=== PATIENT | male | born 1940 | race Caucasian/White ===

== ENCOUNTER 2020-08-13 12:04 | Emergency (ER) | payer OTHER ==
[~2020-08-13] VITALS: Ht 180.3 cm; Wt 87.5 kg
[~2020-08-13 12:04] MED LIST: ADVICOR; ALBU90OI6 INH; ASPI81CH PO; ATOR10; ATOR40TA; ATOR40TA PO; CHOL10002; CLOP75; CLOP75 PO; CYCL10 PO; DOCU100 PO; Daily Multivit1 EAC2 PO; Ferosul325 MG PO; GLIP5 PO; HYDACE10B PO; HYDACE5 PO; IBUP800; Isosorbide Mono30 MG PO; LISI20 PO; MAGOXI400 PO; METF500C PO; METO50 PO; NITR.4SL; OXYACE7.5T PO; OXYC5 PO; Omeprazole20 M1; RANO500T PO; RXOXYACE PO; SENN187 PO; SULTRIDS PO; TUMS300 MG PO; [UNRECOGNIZED DRUG - REMARK]; cholesterol med
[2020-08-13 13:20] LABS: BASOPHILS ABSOLUTE AUTO 0.05 K/mm3 (0.00-0.23); BASOPHILS PERCENT AUTO 1 % (0-2); EOSINOPHILS ABSOLUTE AUTO 0.24 K/mm3 (0.00-0.68); EOSINOPHILS PERCENT AUTO 2 % (0-6); Hematocrit 43.4 % (37.0-53.0); Hemoglobin 14.3 g/dL (13.5-17.5); IMMATURE GRAN ABSOLUTE AUTO 0.12 K/mm3 (0.00-0.10); IMMATURE GRAN PERCENT AUTO 1 % (0-1); LYMPHOCYTES ABSOLUTE AUTO 1.39 K/mm3 (0.84-5.20); LYMPHOCYTES PERCENT AUTO 13 % (21-46); MONOCYTES ABSOLUTE AUTO 0.73 K/mm3 (0.16-1.47); MONOCYTES PERCENT AUTO 7 % (4-13); Mean Corpuscular HGB 31.8 pg (26.0-34.0); Mean Corpuscular HGB Conc 32.9 g/dL (31.5-36.5); Mean Corpuscular Volume 97 fL (80-100); Mean Platelet Volume 11.2 fL (9.1-12.4); NEUTROPHILS ABSOLUTE AUTO 8.05 K/mm3 (1.96-9.15); NEUTROPHILS PERCENT AUTO 76 % (41-73); Platelet Count 198 K/mm3 (150-400); RDW Coefficient Variation 12.4 % (11.7-14.2); RDW Standard Deviation 43.9 fL (35.1-46.3); Red Blood Cell Count 4.49 M/mm3 (4.30-5.90); White Blood Cell Count 10.58 K/mm3 (4.00-11.30)
[2020-08-13 13:22] LABS: Alanine Aminotransfer (ALT/SGP 30 U/L (12-78); Albumin, Blood 3.7 g/dL (3.4-5.0); Alk Phos 77 U/L (50-136); Anion Gap 7 mmol/L (6-16); Aspartate Aminotrans (AST/SGOT 21 U/L (12-37); Bilirubin, Total 0.6 mg/dL (0.1-1.0); Blood Urea Nitrogen 31 mg/dL (8-24); Bun/Creatinine Ratio 23.7 (12.0-20.0); CO2, Blood 28 mmol/L (21-32); Calcium, Blood 9.6 mg/dL (8.5-10.1); Chloride, Blood 104 mmol/L (98-108); Creatinine, Blood 1.31 mg/dL (0.60-1.20); Globulin, Blood 3.7 g/dL (2.2-4.0); Glomerular Filtration Rate 56 (60-); Glucose, Blood 101 mg/dL (70-99); Potassium, Blood 4.6 mmol/L (3.5-5.5); Sodium, Blood 139 mmol/L (136-145); Total Protein, Blood 7.4 g/dL (6.4-8.2); Troponin I <0.015 ng/mL (0.000-0.040)
== END 2020-08-13 15:08 | disposition home or self-care (01) ==
LOC: ER 12:04
PROVIDERS: Emergency Medicine
DX: R07.9 Chest pain, unspecified (principal); Z87.891 Personal history of nicotine dependence
CPT/HCPCS: 71045; 80053; 83690; 84484; 85025; 93005; 93010; 99285-25

== ENCOUNTER 2021-08-05 17:28 | Inpatient (IN) | payer OTHER ==
[~2021-08-05] VITALS: Ht 180.3 cm; Wt 81.8 kg
[2021-08-05 18:00] LABS: BASOPHILS ABSOLUTE AUTO 0.07 K/mm3 (0.00-0.23); BASOPHILS PERCENT AUTO 0 % (0-2); EOSINOPHILS ABSOLUTE AUTO 0.04 K/mm3 (0.00-0.68); EOSINOPHILS PERCENT AUTO 0 % (0-6); Hematocrit 43.2 % (37.0-53.0); Hemoglobin 14.3 g/dL (13.5-17.5); IMMATURE GRAN ABSOLUTE AUTO 0.22 K/mm3 (0.00-0.10); IMMATURE GRAN PERCENT AUTO 1 % (0-1); LYMPHOCYTES ABSOLUTE AUTO 1.04 K/mm3 (0.84-5.20); LYMPHOCYTES PERCENT AUTO 5 % (21-46); MONOCYTES ABSOLUTE AUTO 1.45 K/mm3 (0.16-1.47); MONOCYTES PERCENT AUTO 7 % (4-13); Mean Corpuscular HGB 33.3 pg (26.0-34.0); Mean Corpuscular HGB Conc 33.1 g/dL (31.5-36.5); Mean Corpuscular Volume 101 fL (80-100); Mean Platelet Volume 10.9 fL (9.1-12.4); NEUTROPHILS ABSOLUTE AUTO 17.82 K/mm3 (1.96-9.15); NEUTROPHILS PERCENT AUTO 86 % (41-73); Platelet Count 267 K/mm3 (150-400); RDW Coefficient Variation 13.3 % (11.7-14.2); Red Blood Cell Count 4.29 M/mm3 (4.30-5.90); White Blood Cell Count 20.64 K/mm3 (4.00-11.30)
[2021-08-05 19:12] LABS: Albumin, Blood 3.5 g/dL (3.4-5.0); Albumin/Globulin Ratio 1.1 (0.8-1.8); Bilirubin, Total 1.2 mg/dL (0.1-1.0); Calcium, Blood 9.5 mg/dL (8.5-10.1); Creatinine, Blood 1.45 mg/dL (0.60-1.20); Globulin, Blood 3.3 g/dL (2.2-4.0); Magnesium, Blood 1.9 mg/dL (1.6-2.4); Potassium, Blood 5.2 mmol/L (3.5-5.5); Total Protein, Blood 6.8 g/dL (6.4-8.2)
[2021-08-05 19:39] LABS: Base Excess Venous -7.9 mmol/L; Bicarbonate Venous 18.2 mmol/L (24.0-30.0); PCO2 Venous 45.1 mmHg (38-42); PO2 Venous 89.9 mmHg (38-42); pH Blood Venous 7.24 (7.34-7.37)
[2021-08-05 21:48] LABS: Base Excess Venous -6.6 mmol/L; Bicarbonate Venous 18.4 mmol/L (24.0-30.0); PCO2 Venous 47.6 mmHg (38-42); PO2 Venous 37.4 mmHg (38-42); pH Blood Venous 7.25 (7.34-7.37)
[2021-08-06 01:29] LABS: Influenza A, PCR NEGATIVE (NEGATIVE); Influenza B, PCR NEGATIVE (NEGATIVE); Resp Syncytial Virus, PCR NEGATIVE (NEGATIVE); SARS-Cov-2 (COVID-19) PCR, MMC NEGATIVE (NEGATIVE)
[2021-08-06 03:01] LABS: Base Excess Venous -6.7 mmol/L; Bicarbonate Venous 18.5 mmol/L (24.0-30.0); PCO2 Venous 41.6 mmHg (38-42); PO2 Venous 35.4 mmHg (38-42); pH Blood Venous 7.29 (7.34-7.37)
[2021-08-06 03:04] LABS: BASOPHILS ABSOLUTE AUTO 0.05 K/mm3 (0.00-0.23); BASOPHILS PERCENT AUTO 0 % (0-2); EOSINOPHILS PERCENT AUTO 0 % (0-6); Hematocrit 43.7 % (37.0-53.0); Hemoglobin 14.1 g/dL (13.5-17.5); IMMATURE GRAN ABSOLUTE AUTO 0.25 K/mm3 (0.00-0.10); IMMATURE GRAN PERCENT AUTO 1 % (0-1); LYMPHOCYTES ABSOLUTE AUTO 0.63 K/mm3 (0.84-5.20); LYMPHOCYTES PERCENT AUTO 2 % (21-46); MONOCYTES ABSOLUTE AUTO 2.13 K/mm3 (0.16-1.47); MONOCYTES PERCENT AUTO 7 % (4-13); Mean Corpuscular HGB 32.7 pg (26.0-34.0); Mean Corpuscular HGB Conc 32.3 g/dL (31.5-36.5); Mean Corpuscular Volume 101 fL (80-100); Mean Platelet Volume 10.5 fL (9.1-12.4); NEUTROPHILS ABSOLUTE AUTO 26.29 K/mm3 (1.96-9.15); NEUTROPHILS PERCENT AUTO 90 % (41-73); Platelet Count 236 K/mm3 (150-400); RDW Coefficient Variation 13.2 % (11.7-14.2); RDW Standard Deviation 49.7 fL (35.1-46.3); Red Blood Cell Count 4.31 M/mm3 (4.30-5.90); White Blood Cell Count 29.35 K/mm3 (4.00-11.30)
[2021-08-06 03:29] LABS: Bun/Creatinine Ratio 21.8 (12.0-20.0); Calcium, Blood 8.8 mg/dL (8.5-10.1); Creatinine, Blood 1.42 mg/dL (0.60-1.20); Potassium, Blood 5.8 mmol/L (3.5-5.5)
[2021-08-06] MEDS ORDERED: AMLO5 PO (03:48)
[2021-08-06] MEDS ORDERED: STIOLTO RESPIMAT4 G1 INH (03:56)
[2021-08-06] MEDS ORDERED: RANEXA1000 M1 PO (04:03)
[2021-08-06] MEDS ORDERED: CHLO25B PO (04:08)
[2021-08-06] MEDS ORDERED: THERA-D2000 UNIT PO (04:10)
--- NOTE | 2021-08-06 07:15 | NUR ---
OUT OF UNIT TO OPERATING ROOM: FRANCOIS Martínez RN, HAS COME TO PT's BEDSIDE & WILL BE ESCORTING THIS PT TO THE OR THIS AM. PT TRANSFERRED TO [facility] & TAKEN OUT OF ROOM AT APPROX 0715. THIS RN HAS NOT BEEN ABLE TO ASSESS PT PRIOR TO LEAVING UNIT, PLAN IS FOR PT TO RETURN TO ICU AFTER SURGERY. 0800 ZOSYN DOSE SENT W/ ASUNCION PARRISH, TO BE GIVEN DURING PROCEDURE.
--- NOTE | 2021-08-06 07:44 | NUR ---
SHIFT SUMMARY PATIENT SLEPT THROUGH MOST OF SHIFT. HAD 2 BM OF SOFT STOOL. NO DIARRHEA. NO NAUSEA OR VOMITING. PAIN 6/10 IN LOW ABD AT MAX-FENTANY[facility] 25MCG IV X1 GIVEN WITH IMPROVEMENT TO 2/10. DESATTED WHEN SLEEPING FROM SPO2 MID TO HIGH 90'S DOWN TO 70'S. 3LPM NC PLACED ON PATIENT AND NO FURTHER EVENTS OF DECREASED SPO2 OCCURED. PATIENT NPO T/O NIGHT IN PREP FOR SURGERY THIS AM. LACTIC STILL CRITICAL @ 7.0 BUT IMPROVED FROM 7.6. LR INF @ 100ML/HR AND NS TKO. NO OTHER CHANGES DURING SHIFT. REPORT COMPLETED WITH ASUNCION GAINES.
--- NOTE | 2021-08-06 08:08 | NUR ---
08/06/21 0808 Rosa Monreal DURING TIME OUT DR TOMAS EXPRESSED CONCERNS FOR THIS SURGERY RELATED TO PT BEING SEPTIC, CARDIAC HISTORY AND PT IS ON PLAVIX.
--- NOTE | 2021-08-06 09:30 | NUR ---
DR TOMAS: PT IS NOW IN PACU & DR TOMAS HAS COME TO THE UNIT TO GIVE THIS RN AN UPDATE REGARDING THE SURGERY. THE PT IS NOW S/P LAPROSCOPIC APPENDECTOMY THAT WENT WELL W/ NO COMPLICATIONS. HE FEELS THAT THE PT IS TRENDING IN THE RIGHT DIRECTIONS & IF HE REMAINS APPROPRIATE, WILL BE A GOOD CANDIDATE FOR A TRANSFER TO SURGICAL FLOOR THIS AFTERNOON. DR TOMAS HAS ALSO CALLED & UPDATED THE PT's SISTER, MEL. NO OTHER CHANGES AT THIS TIME, WILL AWAIT PT RETURN TO ICU-11 FROM PACU.
[2021-08-06 09:54] LABS: C DIFFICILE DNA NEGATIVE (Negative)
--- NOTE | 2021-08-06 10:15 | NUR ---
RETURN TO ICU: PT ARRIVES TO ICU-11 FROM PACU AT APPROX 1000. ON ARRIVAL, THE PT IS DROWSY BUT AWAKE. ORIENTED TO ALL & FOLLOWING DIRECTIONS. HE DENIES PAIN AT THIS TIME. LS DIM T/O, PT ON 3L NC W/ O2 SATS > 95%. MONITOR SHOWS SR W/ HR 80s, BP STABLE. WHEN PT MORE AWAKE, CLEAR LIQUIDS DIET ORDERED PER DR TOMAS. PATENT/ DRAINING YELLOW URINE. SKIN CONDITION OVERALL FRAGILE W/ NUMEROUS AREAS OF ECCHYMOSIS & SKIN TEARS R/T GLF AT HOME. 3 LAP SITES NOW NOTED ON ABDOMEN, 2 W/ STERI STRIPS CDI & 1 TO UMBILICUS W/ GAUZE & TEGADERM CDI. WILL CONTINUE TO MONITOR & UPDATE NEEDED.
--- NOTE | 2021-08-06 10:20 | NUR ---
DR AVELAR: PROVIDER AT BEDSIDE TO EVAL PT. IVF RATE INCREASED PER ORDERS R/T LACTIC ACID REMAINING CRITICAL HIGH, ALTHOUGH IMPROVED.
[2021-08-06 10:46] LABS: Source, Urine Foley catheter
[2021-08-06 12:29] LABS: Bilirubin, Urine Neg (Neg); Blood, Urine 1+ (Neg); Color, Urine Amber (P-Yellow); Glucose Qualitative, Urine Neg (Neg); Ketones, Urine 2+ (Neg); Leukocyte Esterase, Urine 1+ (Neg); Nitrite, Urine Pos (Neg); Protein, Urine 2+ (Neg); Specific Gravity, Urine 1.015 (1.003-1.022); Urobilinogen, Urine NORM (Normal)
[2021-08-06 13:33] LABS: Appearance, Urine Hazy (Clear)
[2021-08-06 13:34] LABS: Amorphous Mod (0-Heavy); Bacteria Mod /hpf; Hyaline Casts 0-2 /lpf (0-2); Mucus Light (0-Heavy); Squamous Epithelial Cells Few /hpf (Few)
--- NOTE | 2021-08-06 15:15 | NUR ---
TRANSFER TO SURGICAL FLOOR: REPORT HAS BEEN GIVEN TO JONE Greene RN TO ASSUME CARE. THE PT CONTINUES TO DENY PAIN OR NAUSEA POSTOPERATIVELY & HAS TOLERATED PO INTAKE OF CLEAR LIQUIDS WELL. LAP SITES x3 TO ABD WNL, NO NEW DRAINAGE NOTED. ALL PT BELONGINGS HAVE BEEN GATHERED BY FREIGHT LOADER, CARLOS Gamble. THE PT, CHART, BELONGINGS & MEDICATIONS HAVE BEEN TAKEN TO ROOM 227 VIA BED AT APPROX 1510.
--- NOTE | 2021-08-06 15:52 | NUR ---
PT ARRIVED FROM ICU TO RM 227 AT APPROXIMATELY 1530. PT IS ALERT AND ORIENTED, DENIES NEED FOR PAIN MEDICATION. PLAN FOR TO REMAIN IN PLACE TO MONITOR URINARY OUTPUT. PT/OT TO BE ORDERED. TELE IN PLACE, PT IN NSR. WILL CONTINUE TO MONITOR.
--- NOTE | 2021-08-06 19:15 | NUR ---
SHIFT SUMMARY PT IS TOLERATING CLEAR LIQUIDS. PT DENIES PAIN. NO CHANGES TO REPORT SINCE PT ARRIVED TO THE ROOM.
--- NOTE | 2021-08-07 04:17 | NUR ---
SHIFT SUMMARY NO ACUTE CHANGES. LAP SITES TO ABD REMAIN CDI. PT CONTINUES TO DENY THE NEED FOR PAIN MEDICATIONS. IVF + ABX PER ORDERS. PT DENIES FLATUS. PATENT AND DRAINING DARK CODY COLORED URINE. PLAN FOR PT/OT EVALS TODAY. CALL LIGHT WITHIN REACH.
[2021-08-07 04:47] LABS: Hematocrit 35.2 % (37.0-53.0); Hemoglobin 11.7 g/dL (13.5-17.5); Mean Corpuscular HGB 32.9 pg (26.0-34.0); Mean Corpuscular HGB Conc 33.2 g/dL (31.5-36.5); Mean Corpuscular Volume 99 fL (80-100); Mean Platelet Volume 10.7 fL (9.1-12.4); Platelet Count 180 K/mm3 (150-400); RDW Coefficient Variation 13.4 % (11.7-14.2); RDW Standard Deviation 48.3 fL (35.1-46.3); Red Blood Cell Count 3.56 M/mm3 (4.30-5.90); White Blood Cell Count 15.42 K/mm3 (4.00-11.30)
[2021-08-07 05:10] LABS: Bun/Creatinine Ratio 18.6 (12.0-20.0); Calcium, Blood 8.3 mg/dL (8.5-10.1); Creatinine, Blood 0.97 mg/dL (0.60-1.20); Magnesium, Blood 1.4 mg/dL (1.6-2.4); Potassium, Blood 3.6 mmol/L (3.5-5.5)
--- NOTE | 2021-08-07 14:04 | NUR ---
WHEN DOING ASSESSMENT TODAY AT ABOUT 0930, REGISTERED DIETICIAN CAMMIE CALLED BY THIS RN. TECH REPORTS THAT PT IS IN AFIB,RATE OF 89. PT HAS BEEN IN THIS RHYTHM SINCE 0300 THIS MORNING PER REGISTERED DIETICIAN, SEE STRIPS. WITH ASSESSMENT, NO CHANGE IN VITAL SIGNS, PT DENIES CP AND REPORTS THAT AFIB IS COMMON FOR HIM. DR. AVELAR NOTIFIED OF CHANGE IN RHYTHM. WILL CTM
--- NOTE | 2021-08-07 14:47 | NUR ---
DRESSING AT L WRIST REMOVED AND SKIN TEAR CLEANSED. DRESSED WITH NON-ADHERENT DRESSING AND CATHERINE WRAP
--- NOTE | 2021-08-07 16:55 | NUR ---
SUMMARY: NO ACUTE CHANGE TODAY. VSS, A/O. SURGICAL SITES WNL. PT TOLERATING CLEAR/FULL LIQUID, ADVANCED TO ADA DIET FOR DINNER. PT HAS DENIED NAUSEA, CONTINUES TO HAVE SOME LOOSE STOOLS. PT IS SBA DUE TO LINES/CORDS BUT MOVES WELL, SEE PT/OT NOTES. OG VILLALBA'D, AWAITING PT VOID, WILL ENCOURAGE AND MONITOR. 1 NARCO SEEMS TO BE MANAGING PAIN WELL. EDUCATED ON SPLITING ABD WITH COUGH. PER DR. TOMAS NO NEED FOR REPEAT LACTIC, WBC'S ARE TRENDING DOWN. NO SAFETY CONCERNS, WILL REPORT TO NOC RN.
--- NOTE | 2021-08-08 05:19 | NUR ---
PT IS A&OX4, 1PA TO [facility] AND IS ABLE TO MAKE NEEDS KNOWN. RECENT LAP APPY, POST OP DAY 2. RECEIVING IV ABX. ON TELE, HAS A FLUTTER WITH HR OF 80-100 THIS SHIFT. PT ABLE TO REST BETWEEN CARES, SLEEPS 6+ HOURS THIS SHIFT. REQUIRES ENCOURAGMENT TO USE CALL LIGHT. STRAIGHT CATHED FOR 700ML, PT WAS RETAINING URINE. WILL CONTINUE TO MONITOR PT AND GIVE HANDOFF REPORT TO ONCOMING NURSE.
--- NOTE | 2021-08-08 18:36 | NUR ---
PT AMBULATING IN ROOM AND GARCIA WITH WALKER, STEADY GAIT. WITH CLEAR YELLOW OUTPUT. ORDERS FOR STOOL SPECIMEN, SINCE ORDER PT HAD1 APPROX 10 ML STOOL OF CLEAR MUCOUS ONLY. DANIELA DIET WITHOUT NAUSEA. STERI STRIPS DRY AND INTACT TO ABD
[2021-08-09 04:53] LABS: Hematocrit 33.2 % (37.0-53.0); Hemoglobin 11.1 g/dL (13.5-17.5); Mean Corpuscular HGB 32.9 pg (26.0-34.0); Mean Corpuscular HGB Conc 33.4 g/dL (31.5-36.5); Mean Corpuscular Volume 99 fL (80-100); Mean Platelet Volume 10.4 fL (9.1-12.4); Platelet Count 208 K/mm3 (150-400); Red Blood Cell Count 3.37 M/mm3 (4.30-5.90); White Blood Cell Count 13.02 K/mm3 (4.00-11.30)
[2021-08-09 05:12] LABS: Bun/Creatinine Ratio 9.7 (12.0-20.0); Calcium, Blood 8.5 mg/dL (8.5-10.1); Creatinine, Blood 0.82 mg/dL (0.60-1.20); Potassium, Blood 3.4 mmol/L (3.5-5.5)
--- NOTE | 2021-08-09 05:34 | NUR ---
NO ACUTE CHANGES THIS SHIFT. PT A&OX4, 1PA TO [facility] [place] [place] AND IS ABLE TO MAKE NEEDS KNOWN. LAP SITES ARE CDI, NO REPORTS OF PAIN THIS SHIFT. STOOLS REMAIN SOFT AND MUCOUS FILLED, UNABLE TO OBTAIN A STOOL SAMPLE. PT TOLERATING DIET. BLOOD SUGARS <170. PT ABLE TO AMBULATE THE HALLWAY YESTERDAY. RESTS BETWEEN CARES, SLEEPS 6+ HOURS THIS SHIFT. WILL CONTINUE TO MONITOR AND GIVE REPORT TO ONCOMING NURSE.
--- NOTE | 2021-08-09 18:24 | NUR ---
PT UNABLE TO VOID AFTER REMOVED. ORDERS OBTAINED TO REPLACE IF BLADDER SCAN GREATER THAN 400. PT STATES HAS HAD NO DIFFICULTY VOIDING PRIOR TO ADMIT PT IN SHOWER AT THIS TIME STATES IT MAY HELP HIM TO RELAX AND BE ABLE TO VOID. DANIELA PO FOOD AND FLUIDS WITHOUT NAUSEA. AMBULATING IN ROOM STEADY ON FEET
--- NOTE | 2021-08-10 03:44 | NUR ---
SHIFT SUMMARY NO ACUTE CHANGES OVERNIGHT, PT HAS RESTED OFF AND ON T/O THE SHIFT. HE DENIES PAIN. ABD INCISION C/D/I, STERI STRIPS TO ABD INTACT. ABD SOFT, APPETITE GOOD. PT HAS VOIDED TWICE THIS SHIFT WITHOUT DIFFCULTY SINCE REMOVAL. PT HAS BEEN INDEPENDENT IN THE ROOM. PLAN IS FOR POSSIBLE DC TODAY. BED IN LOWEST POSITION, CALL LIGHT WITHIN REACH.
--- NOTE | 2021-08-10 08:36 | NUR ---
DENIES ANY PAIN, EATING REGULAR BREAKFAST, REPORTS TOLERATING REGULAR DIET WELL AND PASSING FLATUS, DENIES ANY URINARY RETENTION, STATES VOIDING WITHOUT DIFFICULTY, CONT. TO MONITOR FOR ANY CHANGES.
[2021-08-10] MEDS ORDERED: AMOCLA875 PO (10:27)
[2021-08-10] MEDS ORDERED: ELIQUIS5 M2 PO (10:28)
[2021-08-10] MEDS ORDERED: VISBIOME 112.51 EACH PO (10:28)
[2021-08-10] MEDS ORDERED: TAMS.4ER PO (10:28)
[2021-08-10] MEDS ORDERED: DOCUZEN 8.6-501 EACH PO (10:30)
[2021-08-10] MEDS ORDERED: MIRALAX17 GM PO (10:31)
--- NOTE | 2021-08-10 12:01 | NUR ---
DC'D HOME, DC INSTRUCTIONS GIVEN, VERBALIZED UNDERSTANDING.
== END 2021-08-10 11:30 | disposition home or self-care (01) | DRG 853 ==
LOC: ER 17:28 → ICUW 08-06 → SURS 08-06 → ICUW 08-06 00:30 → SURS 08-06 15:15
PROVIDERS: Internal Medicine; Student in an Organized Health Care Education/Training Program; Surgery; ADMIT Family Medicine
PROC: 0DTJ4ZZ Resection of Appendix, Percutaneous Endoscopic Approach (ICD-10-PCS; 2021-08-06)
PROC: 3E03329 Introduction of Other Anti-infective into Peripheral Vein, Percutaneous Approach (ICD-10-PCS; principal; 2021-08-06 07:30)
DX: A41.9 Sepsis, unspecified organism (principal); R65.21 Severe sepsis with septic shock; N17.9 Acute kidney failure, unspecified; K35.80 Unspecified acute appendicitis; Z20.822 Contact with and (suspected) exposure to COVID-19; I48.91 Unspecified atrial fibrillation; R33.9 Retention of urine, unspecified; I25.10 Atherosclerotic heart disease of native coronary artery without angina pectoris; J44.9 Chronic obstructive pulmonary disease, unspecified; I11.0 Hypertensive heart disease with heart failure; E78.5 Hyperlipidemia, unspecified; R19.7 Diarrhea, unspecified; E87.5 Hyperkalemia; I50.9 Heart failure, unspecified; I35.0 Nonrheumatic aortic (valve) stenosis; D72.828 Other elevated white blood cell count; E11.40 Type 2 diabetes mellitus with diabetic neuropathy, unspecified; Z95.1 Presence of aortocoronary bypass graft; Z95.4 Presence of other heart-valve replacement; Z79.4 Long term (current) use of insulin; Z79.01 Long term (current) use of anticoagulants; Z79.82 Long term (current) use of aspirin; Z79.899 Other long term (current) drug therapy
CPT/HCPCS: 0241U; 36415; 70450; 71046; 72125; 74177; 80048; 80053; 81001; 82803; 82947; 83605; 83735; 83880; 84132; 84145; 84484; 85025; 85027; 87040; 87077; 87086; 87186; 87493; 88304; 93005; 93010; 94640; 94664; 94667; 94760; 96365-59; 96375; 97110; 97161; 97165; 97535; 99285-25; A9270; C9113; J1100; J1170; J1650; J1815; J2250; J2405; J2543; J2704; J2710; J3010; J3475; J7030; J7040; J7120; Q9967

== ENCOUNTER 2022-02-10 10:39 | Emergency (ER) | payer OTHER ==
[~2022-02-10] VITALS: Ht 170.2 cm; Wt 88.0 kg
[~2022-02-10 10:39] MED LIST changes: +AMLO5 PO; +AMOCLA875 PO; +CHLO25B PO; +DOCUZEN 8.6-501 EACH PO; +ELIQUIS5 M2 PO; +MIRALAX17 GM PO; +RANEXA1000 M1 PO; +STIOLTO RESPIMAT4 G1 INH; +TAMS.4ER PO; +THERA-D2000 UNIT PO; +VISBIOME 112.51 EACH PO
[2022-02-10 12:18] LABS: BASOPHILS ABSOLUTE AUTO 0.02 K/mm3 (0.00-0.23); BASOPHILS PERCENT AUTO 0 % (0-2); EOSINOPHILS ABSOLUTE AUTO 0.07 K/mm3 (0.00-0.68); EOSINOPHILS PERCENT AUTO 1 % (0-6); Hematocrit 36.8 % (37.0-53.0); Hemoglobin 12.1 g/dL (13.5-17.5); IMMATURE GRAN ABSOLUTE AUTO 0.06 K/mm3 (0.00-0.10); IMMATURE GRAN PERCENT AUTO 1 % (0-1); LYMPHOCYTES ABSOLUTE AUTO 1.09 K/mm3 (0.84-5.20); LYMPHOCYTES PERCENT AUTO 14 % (21-46); MONOCYTES ABSOLUTE AUTO 0.68 K/mm3 (0.16-1.47); MONOCYTES PERCENT AUTO 9 % (4-13); Mean Corpuscular HGB 32.4 pg (26.0-34.0); Mean Corpuscular HGB Conc 32.9 g/dL (31.5-36.5); Mean Corpuscular Volume 98 fL (80-100); NEUTROPHILS ABSOLUTE AUTO 5.72 K/mm3 (1.96-9.15); NEUTROPHILS PERCENT AUTO 75 % (41-73); Platelet Count 149 K/mm3 (150-400); RDW Coefficient Variation 13.1 % (11.7-14.2); RDW Standard Deviation 46.5 fL (35.1-46.3); Red Blood Cell Count 3.74 M/mm3 (4.30-5.90); White Blood Cell Count 7.64 K/mm3 (4.00-11.30)
[2022-02-10 12:32] LABS: Albumin, Blood 3.2 g/dL (3.4-5.0); Albumin/Globulin Ratio 0.9 (0.8-1.8); Bilirubin, Total 0.6 mg/dL (0.1-1.0); Bun/Creatinine Ratio 13.4 (12.0-20.0); Calcium, Blood 8.4 mg/dL (8.5-10.1); Creatinine, Blood 0.9 mg/dL (0.60-1.20); Globulin, Blood 3.5 g/dL (2.2-4.0); Potassium, Blood 4.8 mmol/L (3.5-5.5); Total Protein, Blood 6.7 g/dL (6.4-8.2)
== END 2022-02-10 16:26 | disposition home or self-care (01) ==
LOC: ER 10:39
PROVIDERS: Emergency Medicine
DX: R07.89 Other chest pain (principal); R06.02 Shortness of breath; I25.10 Atherosclerotic heart disease of native coronary artery without angina pectoris; J44.9 Chronic obstructive pulmonary disease, unspecified; E11.9 Type 2 diabetes mellitus without complications; I50.9 Heart failure, unspecified; Z79.899 Other long term (current) drug therapy; Z91.030 Bee allergy status; Z79.01 Long term (current) use of anticoagulants; Z95.2 Presence of prosthetic heart valve; Z95.0 Presence of cardiac pacemaker; Z95.1 Presence of aortocoronary bypass graft; Z95.5 Presence of coronary angioplasty implant and graft
CPT/HCPCS: 71045; 80053; 83880; 84484; 85025

== ENCOUNTER 2022-02-21 06:13 | Emergency (ER) | payer OTHER ==
[~2022-02-21] VITALS: Ht 175.3 cm; Wt 86.2 kg
[~2022-02-21 06:13] MED LIST changes: +CEFD300 PO; +Zithromax250 MG PO
[2022-02-21 07:14] LABS: BASOPHILS ABSOLUTE AUTO 0.05 K/mm3 (0.00-0.23); BASOPHILS PERCENT AUTO 1 % (0-2); EOSINOPHILS ABSOLUTE AUTO 0.16 K/mm3 (0.00-0.68); EOSINOPHILS PERCENT AUTO 2 % (0-6); Hematocrit 45.1 % (37.0-53.0); Hemoglobin 14.5 g/dL (13.5-17.5); IMMATURE GRAN ABSOLUTE AUTO 0.09 K/mm3 (0.00-0.10); IMMATURE GRAN PERCENT AUTO 1 % (0-1); LYMPHOCYTES ABSOLUTE AUTO 1.03 K/mm3 (0.84-5.20); LYMPHOCYTES PERCENT AUTO 12 % (21-46); MONOCYTES ABSOLUTE AUTO 0.65 K/mm3 (0.16-1.47); MONOCYTES PERCENT AUTO 8 % (4-13); Mean Corpuscular HGB 31.9 pg (26.0-34.0); Mean Corpuscular HGB Conc 32.2 g/dL (31.5-36.5); Mean Corpuscular Volume 99 fL (80-100); Mean Platelet Volume 11.6 fL (9.1-12.4); NEUTROPHILS ABSOLUTE AUTO 6.36 K/mm3 (1.96-9.15); NEUTROPHILS PERCENT AUTO 76 % (41-73); Platelet Count 167 K/mm3 (150-400); RDW Standard Deviation 46.8 fL (35.1-46.3); Red Blood Cell Count 4.55 M/mm3 (4.30-5.90); White Blood Cell Count 8.34 K/mm3 (4.00-11.30)
[2022-02-21 07:31] LABS: Creatinine, Blood 1.07 mg/dL (0.60-1.20); Potassium, Blood 4.9 mmol/L (3.5-5.5)
[2022-02-21] MEDS ORDERED: FURO20 PO (10:48)
== END 2022-02-21 11:00 | disposition home or self-care (01) ==
LOC: ER 06:13
PROVIDERS: Student in an Organized Health Care Education/Training Program
DX: I50.30 Unspecified diastolic (congestive) heart failure (principal); I25.10 Atherosclerotic heart disease of native coronary artery without angina pectoris; J44.9 Chronic obstructive pulmonary disease, unspecified; E11.9 Type 2 diabetes mellitus without complications; Z95.2 Presence of prosthetic heart valve; Z95.1 Presence of aortocoronary bypass graft; Z95.5 Presence of coronary angioplasty implant and graft; Z95.0 Presence of cardiac pacemaker; Z91.030 Bee allergy status; Z79.899 Other long term (current) drug therapy; Z79.01 Long term (current) use of anticoagulants
CPT/HCPCS: 36415; 71046; 80048; 83735; 83880; 84145; 84484; 85025; 93005; 93010; 94640; 94664; J1940; J3475

== ENCOUNTER 2022-06-17 13:42 | Day surgery (SDC) | payer OTHER ==
[~2022-06-17] VITALS: Ht 177.8 cm; Wt 82.9 kg
[~2022-06-17 13:42] MED LIST changes: +FURO20 PO
[2022-06-17] MEDS ORDERED: METO50ER PO (14:16)
[2022-06-17] MEDS ORDERED: Norco 10-325 T1 EACH PO (14:21)
--- NOTE | 2022-06-17 14:34 | NUR ---
06/17/22 1434 Jose Serna CALL LIGHT WITHIN REACH. TETRACAINE INTO RIGHT EYE AT 1416 AND XENIA IN AT 1417.
[2022-06-17 15:24] VITALS: BP 153/60
== END 2022-06-17 15:38 | disposition home or self-care (01) ==
LOC: ORSCSDS 13:42
PROVIDERS: Ophthalmology
PROC: 08RJ3JZ Replacement of Right Lens with Synthetic Substitute, Percutaneous Approach (ICD-10-PCS; principal; 2022-06-17 15:00)
DX: E11.36 Type 2 diabetes mellitus with diabetic cataract (principal); H25.11 Age-related nuclear cataract, right eye; H21.81 Floppy iris syndrome; I10 Essential (primary) hypertension; I25.10 Atherosclerotic heart disease of native coronary artery without angina pectoris; E78.00 Pure hypercholesterolemia, unspecified; Z79.899 Other long term (current) drug therapy; Z79.02 Long term (current) use of antithrombotics/antiplatelets; Z95.0 Presence of cardiac pacemaker; I48.91 Unspecified atrial fibrillation; G47.33 Obstructive sleep apnea (adult) (pediatric); I25.2 Old myocardial infarction; Z79.84 Long term (current) use of oral hypoglycemic drugs
CPT/HCPCS: 82947; J2001; J2250; J3010; J3301; J7040; V2632

== ENCOUNTER 2024-05-28 15:31 | Emergency (ER) | payer MEDICARE ==
[~2024-05-28] VITALS: Ht 175.3 cm; Wt 77.7 kg
[~2024-05-28 15:31] MED LIST changes: +METO50ER PO; +Norco 10-325 T1 EACH PO
[2024-05-28 16:25] LABS: BASOPHILS ABSOLUTE AUTO 0.05 K/mm3 (0.00-0.23); BASOPHILS PERCENT AUTO 1 % (0-2); EOSINOPHILS ABSOLUTE AUTO 0.13 K/mm3 (0.00-0.68); EOSINOPHILS PERCENT AUTO 2 % (0-6); Hematocrit 41.9 % (37.0-53.0); IMMATURE GRAN ABSOLUTE AUTO 0.06 K/mm3 (0.00-0.10); IMMATURE GRAN PERCENT AUTO 1 % (0-1); LYMPHOCYTES ABSOLUTE AUTO 0.78 K/mm3 (0.84-5.20); LYMPHOCYTES PERCENT AUTO 9 % (21-46); MONOCYTES ABSOLUTE AUTO 0.62 K/mm3 (0.16-1.47); MONOCYTES PERCENT AUTO 7 % (4-13); Mean Corpuscular HGB 32.3 pg (26.0-34.0); Mean Corpuscular HGB Conc 33.4 g/dL (31.5-36.5); Mean Corpuscular Volume 97 fL (80-100); Mean Platelet Volume 10.7 fL (9.1-12.4); NEUTROPHILS ABSOLUTE AUTO 7.19 K/mm3 (1.96-9.15); NEUTROPHILS PERCENT AUTO 81 % (41-73); Platelet Count 221 K/mm3 (150-400); RDW Coefficient Variation 14.2 % (11.7-14.2); Red Blood Cell Count 4.33 M/mm3 (4.30-5.90); White Blood Cell Count 8.83 K/mm3 (4.00-11.30)
[2024-05-28 16:27] LABS: Base Excess Venous 4.6 mmol/L; Bicarbonate Venous 26.8 mmol/L (24.0-30.0); PCO2 Venous 53.9 mmHg (38-42); pH Blood Venous 7.36 (7.34-7.37)
[2024-05-28 16:45] LABS: Magnesium, Blood 2.3 mg/dL (1.6-2.4)
[2024-05-28 16:46] LABS: Albumin, Blood 3.8 g/dL (3.4-5.0); Albumin/Globulin Ratio 1.1 (0.8-1.8); Bilirubin, Total 0.9 mg/dL (0.1-1.0); Bun/Creatinine Ratio 25.2 (12.0-20.0); Calcium, Blood 9.1 mg/dL (8.5-10.1); Creatinine, Blood 1.59 mg/dL (0.60-1.20); Globulin, Blood 3.6 g/dL (2.2-4.0); Phosphorus, Blood 3.4 mg/dL (2.5-4.9); Potassium, Blood 5.4 mmol/L (3.5-5.5); Total Protein, Blood 7.4 g/dL (6.4-8.2)
[2024-05-28] MEDS ORDERED: Ketorolac Tromethamine 15mg Vial IV ONE (18:35)
[2024-05-28] MEDS ORDERED: NS 1,000 ML IV SCH (18:35)
[2024-05-28 20:04] VITALS: BP 142/72
== END 2024-05-28 20:04 | disposition home or self-care (01) ==
LOC: ER 15:31
PROVIDERS: Physician Assistant
DX: R53.1 Weakness (principal); E87.1 Hypo-osmolality and hyponatremia; E11.40 Type 2 diabetes mellitus with diabetic neuropathy, unspecified; E78.00 Pure hypercholesterolemia, unspecified; J44.89 Other specified chronic obstructive pulmonary disease; I25.2 Old myocardial infarction; Z79.84 Long term (current) use of oral hypoglycemic drugs; Z79.899 Other long term (current) drug therapy; Z91.030 Bee allergy status; Z88.8 Allergy status to other drugs, medicaments and biological substances
CPT/HCPCS: 80053; 82803; 82947; 83735; 84100; 85025; 93005; 93010; 96361; 96374; 99284-25; J1885; J7030

== ENCOUNTER 2024-06-20 06:46 | Emergency (ER) | payer SELFPAY ==
[~2024-06-20] VITALS: Ht 177.8 cm; Wt 77.1 kg
[2024-06-20 09:15] LABS: Influenza A, PCR NEGATIVE (NEGATIVE); Influenza B, PCR NEGATIVE (NEGATIVE); Resp Syncytial Virus, PCR NEGATIVE (NEGATIVE)
[2024-06-20 09:19] LABS: SARS-Cov-2 (COVID-19) PCR, MMC POSITIVE (NEGATIVE)
[2024-06-20] MEDS ORDERED: Dexamethasone Sod Phos 10 MG/ML 1ML VIAL PO ONE (09:40)
[2024-06-20] MEDS ORDERED: Penicillin G Benzathine 1.2 MMU / 2 ML SYR IM ONE (09:40)
[2024-06-20] MEDS ORDERED: Ketorolac Tromethamine 30mg Vial IM ONE (10:35)
[2024-06-20 10:42] VITALS: BP 133/60
== END 2024-06-20 11:11 | disposition home or self-care (01) ==
LOC: ER 06:46
PROVIDERS: Physician Assistant
DX: U07.1 COVID-19 (principal); J02.0 Streptococcal pharyngitis; I25.10 Atherosclerotic heart disease of native coronary artery without angina pectoris; J44.9 Chronic obstructive pulmonary disease, unspecified; E11.9 Type 2 diabetes mellitus without complications; I25.2 Old myocardial infarction; Z91.030 Bee allergy status; Z88.8 Allergy status to other drugs, medicaments and biological substances; Z79.899 Other long term (current) drug therapy; Z79.84 Long term (current) use of oral hypoglycemic drugs; Z79.01 Long term (current) use of anticoagulants; Z95.1 Presence of aortocoronary bypass graft; Z95.5 Presence of coronary angioplasty implant and graft; Z95.0 Presence of cardiac pacemaker
CPT/HCPCS: 0241U; 87430; 96372; 99283-25; J0561; J1100; J1885

== ENCOUNTER 2024-07-04 19:57 | Emergency (ER) | payer OTHER ==
[~2024-07-04] VITALS: Ht 175.3 cm; Wt 77.1 kg
[2024-07-04 21:30] LABS: BASOPHILS ABSOLUTE AUTO 0.06 K/mm3 (0.00-0.23); BASOPHILS PERCENT AUTO 1 % (0-2); EOSINOPHILS ABSOLUTE AUTO 0.09 K/mm3 (0.00-0.68); EOSINOPHILS PERCENT AUTO 1 % (0-6); Hematocrit 35.2 % (37.0-53.0); Hemoglobin 11.7 g/dL (13.5-17.5); IMMATURE GRAN ABSOLUTE AUTO 0.11 K/mm3 (0.00-0.10); IMMATURE GRAN PERCENT AUTO 1 % (0-1); LYMPHOCYTES ABSOLUTE AUTO 0.64 K/mm3 (0.84-5.20); LYMPHOCYTES PERCENT AUTO 8 % (21-46); MONOCYTES ABSOLUTE AUTO 0.66 K/mm3 (0.16-1.47); MONOCYTES PERCENT AUTO 8 % (4-13); Mean Corpuscular HGB 32.1 pg (26.0-34.0); Mean Corpuscular HGB Conc 33.2 g/dL (31.5-36.5); Mean Corpuscular Volume 96 fL (80-100); Mean Platelet Volume 9.9 fL (9.1-12.4); NEUTROPHILS ABSOLUTE AUTO 6.73 K/mm3 (1.96-9.15); NEUTROPHILS PERCENT AUTO 81 % (41-73); Platelet Count 352 K/mm3 (150-400); RDW Coefficient Variation 13.8 % (11.7-14.2); RDW Standard Deviation 49.2 fL (35.1-46.3); Red Blood Cell Count 3.65 M/mm3 (4.30-5.90); White Blood Cell Count 8.29 K/mm3 (4.00-11.30)
[2024-07-04 22:01] LABS: Albumin/Globulin Ratio 0.8 (0.8-1.8); Bilirubin, Total 0.6 mg/dL (0.1-1.0); Calcium, Blood 8.8 mg/dL (8.5-10.1); Creatinine, Blood 1.13 mg/dL (0.60-1.20); Potassium, Blood 4.8 mmol/L (3.5-5.5)
[2024-07-05] MEDS ORDERED: Magnesium Hydroxide Conc 10 ML UDC PO ONE (00:50)
[2024-07-05] MEDS ORDERED: NS 1,000 ML IV SCH (00:50)
[2024-07-05] MEDS ORDERED: ADULT GLYCERIN1 EACH PR (00:51)
[2024-07-05 01:30] VITALS: BP 140/45
== END 2024-07-05 01:52 | disposition home or self-care (01) ==
LOC: ER 19:57
PROVIDERS: Emergency Medicine
DX: E86.0 Dehydration (principal); K59.00 Constipation, unspecified; E11.65 Type 2 diabetes mellitus with hyperglycemia; I25.10 Atherosclerotic heart disease of native coronary artery without angina pectoris; J44.9 Chronic obstructive pulmonary disease, unspecified; I25.2 Old myocardial infarction; Z79.899 Other long term (current) drug therapy; Z79.84 Long term (current) use of oral hypoglycemic drugs; Z79.01 Long term (current) use of anticoagulants; Z88.8 Allergy status to other drugs, medicaments and biological substances; Z91.030 Bee allergy status; Z95.1 Presence of aortocoronary bypass graft; Z95.5 Presence of coronary angioplasty implant and graft; Z95.0 Presence of cardiac pacemaker
CPT/HCPCS: 80053; 83690; 85025; 93005; 93010; 99284-25; A9270; J7030

== ENCOUNTER 2024-10-31 14:25 | Emergency (ER) | payer OTHER ==
[~2024-10-31] VITALS: Ht 172.7 cm; Wt 77.1 kg
[~2024-10-31 14:25] MED LIST changes: +ADULT GLYCERIN1 EACH PR
[2024-10-31] MEDS ORDERED: DiphenhydrAMINE HCl 50 MG/ML 1ML Vial IV ONE (15:30)
[2024-10-31 16:30] VITALS: BP 132/90
[2024-10-31] MEDS ORDERED: FAMO20 PO (16:40)
[2024-10-31] MEDS ORDERED: PRED20 PO (16:40)
[2024-10-31] MEDS ORDERED: EPIPEN0.3 MG/0.3 IM (16:40)
[2024-10-31] MEDS ORDERED: BENADRYL25 M1 PO (16:40)
== END 2024-10-31 16:55 | disposition home or self-care (01) ==
LOC: ER 14:25
DX: T63.441A Toxic effect of venom of bees, accidental (unintentional), initial encounter (principal); L29.9 Pruritus, unspecified; Z91.030 Bee allergy status; Z79.899 Other long term (current) drug therapy; Z79.84 Long term (current) use of oral hypoglycemic drugs; Z79.01 Long term (current) use of anticoagulants; J44.9 Chronic obstructive pulmonary disease, unspecified; E11.40 Type 2 diabetes mellitus with diabetic neuropathy, unspecified; X58.XXXA Exposure to other specified factors, initial encounter
CPT/HCPCS: 96374; 96375; 99283-25; J1200; J2919

== ENCOUNTER 2025-01-05 06:45 | Emergency (ER) | payer OTHER ==
[~2025-01-05] VITALS: Ht 177.8 cm; Wt 95.2 kg
[~2025-01-05 06:45] MED LIST changes: +BENADRYL25 M1 PO; +EPIPEN0.3 MG/0.3 IM; +FAMO20 PO; +PRED20 PO
[2025-01-05 06:54] VITALS: BP 180/89
[2025-01-05 07:13] LABS: BASOPHILS ABSOLUTE AUTO 0.03 K/mm3 (0.00-0.23); BASOPHILS PERCENT AUTO 1 % (0-2); EOSINOPHILS ABSOLUTE AUTO 0.09 K/mm3 (0.00-0.68); EOSINOPHILS PERCENT AUTO 2 % (0-6); Hematocrit 36.6 % (37.0-53.0); Hemoglobin 11.2 g/dL (13.5-17.5); IMMATURE GRAN ABSOLUTE AUTO 0.03 K/mm3 (0.00-0.10); IMMATURE GRAN PERCENT AUTO 1 % (0-1); LYMPHOCYTES ABSOLUTE AUTO 0.77 K/mm3 (0.84-5.20); LYMPHOCYTES PERCENT AUTO 14 % (21-46); MONOCYTES ABSOLUTE AUTO 0.42 K/mm3 (0.16-1.47); MONOCYTES PERCENT AUTO 8 % (4-13); Mean Corpuscular HGB Conc 30.6 g/dL (31.5-36.5); Mean Corpuscular Volume 96 fL (80-100); NEUTROPHILS ABSOLUTE AUTO 4.17 K/mm3 (1.96-9.15); NEUTROPHILS PERCENT AUTO 76 % (41-73); NRBC ABSOLUTE 0.00 K/mm3 (0.00-0.02); NRBC Auto 0.0 /100 WBC (0.0-0.2); Platelet Count 154 K/mm3 (150-400); RDW Coefficient Variation 13.3 % (11.7-14.2); RDW Standard Deviation 47.1 fL (35.1-46.3)
[2025-01-05 07:32] LABS: Alanine Aminotransfer (ALT/SGP 16.0 U/L (12-78); Albumin, Blood 3.5 g/dL (3.4-5.0); Albumin/Globulin Ratio 1.0 (0.8-1.8); Anion Gap 4.0 mmol/L (3-11); Aspartate Aminotrans (AST/SGOT 17.0 U/L (12-37); Bilirubin, Total 0.6 mg/dL (0.1-1.0); Blood Urea Nitrogen 13.0 mg/dL (8-24); CO2, Blood 33.0 mmol/L (21-32); Calcium, Blood 8.8 mg/dL (8.5-10.1); Chloride, Blood 107.0 mmol/L (98-108); Creatinine, Blood 0.94 mg/dL (0.60-1.20); Globulin, Blood 3.6 g/dL (2.2-4.0); Glucose, Blood 108.0 mg/dL (70-99); Potassium, Blood 4.1 mmol/L (3.5-5.5); Sodium, Blood 140.0 mmol/L (136-145); Total Protein, Blood 7.1 g/dL (6.4-8.2)
[2025-01-05] MEDS ORDERED: FURO20 PO (11:35)
== END 2025-01-05 11:45 | disposition home or self-care (01) ==
LOC: ER 06:45
PROVIDERS: Student in an Organized Health Care Education/Training Program
DX: R06.02 Shortness of breath (principal); J44.89 Other specified chronic obstructive pulmonary disease; E11.40 Type 2 diabetes mellitus with diabetic neuropathy, unspecified; E78.00 Pure hypercholesterolemia, unspecified; Z79.52 Long term (current) use of systemic steroids; Z79.02 Long term (current) use of antithrombotics/antiplatelets; Z79.84 Long term (current) use of oral hypoglycemic drugs; Z79.899 Other long term (current) drug therapy; Z91.030 Bee allergy status; Z88.8 Allergy status to other drugs, medicaments and biological substances
CPT/HCPCS: 71046; 80053; 83880; 85025; 93005; 93010; 99285-25

== ENCOUNTER 2025-02-06 12:00 | Inpatient (IN) | payer OTHER, MEDICARE ==
[~2025-02-06] VITALS: Ht 170.2 cm; Wt 80.6 kg
[2025-02-06] VITALS (16 sets, daily range): BP systolic 135–167; BP diastolic 51–79
[~2025-02-06 12:00] MED LIST changes: +ALBU90OI INH; +ASCO500 PO; +BUTRANS1 EAC5 TD; +Calcium Carbon500 MG PO; +CeFAZolin Sodium 2,000 MG in NS 100 ML IV SCH; +Chlorhexidine Mouth Care 15 ML UDC MT SCH; +FERSU300 PO; +METO100 PO; +MULTI-VITAMIN1 EAC2 PO; +NITR.4SL SL; -RANEXA1000 M1 PO; +RANEXA1000 M4 PO; +Ropivacaine 0.5% HCl/Pf 123.125 MG,EPINEPHrine HCL 0.25 MG,Ketorolac Tromethamine 15 MG... INFIL SCH; +Tranexamic Acid 100 ML IV SCH
--- NOTE | 2025-02-06 13:55 | NUR ---
Pre-Op teaching done. Pt verbalizes understanding. IN TO SDS VIA WC, ABLE TO AMBULATE ON OWN SHORT DISTANCE. History, Chart, Medications and Allergies reviewed before start of procedure. Patient confirms NPO status and agrees with scheduled surgery. Patient States Post-Procedure ride home has been arranged.
[2025-02-06] MEDS ORDERED: Bupivacaine HCl 2.5 MG/ML 10ML P/F Injection ONE ×2 (14:50)
[2025-02-06] MEDS ORDERED: Etomidate 2MG / ML 10ML Vial ONE (14:51)
[2025-02-06] MEDS ORDERED: FentaNYL Citrate 50 MCG/ML 2 ML Injection ONE (14:52)
[2025-02-06] MEDS ORDERED: Midazolam HCl 1MG / ML 2ML Vial ONE (14:52)
--- NOTE | 2025-02-06 15:21 | NUR ---
DR. BECKER TO PERFORM INTERSCALINE BLOCK AT BEDSIDE. CONSENT OBTAIN. O2 PLACED AT 2LPM. CONTINUOUS PULSE OX MONITORING INPLACE. 1459 TIME OUT DONE 1505 PROCEDURE STARTED 1518 PROCEDURE COMPLETED PATIENT TOLERATED WELL.
[2025-02-06] MEDS ORDERED: Dexamethasone Sod Phos 10 MG/ML 1ML VIAL ONE (15:24)
[2025-02-06] MEDS ORDERED: Rocuronium Bromide 10 MG/ML 5ML Injection IV ONE (15:24)
[2025-02-06] MEDS ORDERED: Ondansetron HCl 2 MG / ML 2ML Vial ONE (15:24)
[2025-02-06] MEDS ORDERED: HYDROmorphone HCl/Pf 1MG SYR IV PRN ×3 (16:05→18:55)
[2025-02-06] MEDS ORDERED: Ondansetron HCl 2 MG / ML 2ML Vial IV PRN ×3 (16:10→19:00)
[2025-02-06] MEDS ORDERED: FentaNYL Citrate 50 MCG/ML 2 ML Injection IV PRN ×3 (16:10)
--- NOTE | 2025-02-06 16:17 | NUR ---
02/06/25 161Amalia Woo PRIOR TO ARRIVING IN THE OR, PATIENT RECEIVED A LEFT INTERSCALENE NERVE BLOCK IN THE PREOP SETTING PERFORMED BY AT BEDSIDE.
[2025-02-06] MEDS ORDERED: FLU VACC TS2025-26(6MOS UP)/PF 45 MCG/0.5 ML SYRINGE IM ONE (18:45)
[2025-02-06] MEDS ORDERED: Prochlorperazine Edisylate 10 mg Vial IV PRN ×2 (18:45→19:05)
[2025-02-06] MEDS ORDERED: Metoclopramide HCl 5MG / ML 2ML Vial IV PRN ×2 (18:50→19:00)
[2025-02-06] MEDS ORDERED: Magnesium Hydroxide Conc 10 ML UDC PO PRN ×2 (18:50→19:00)
[2025-02-06] MEDS ORDERED: FLU VACC TS2025(65UP)/MF59C/PF 45 MCG/0.5 ML SYRINGE IM SCH (18:55)
[2025-02-06] MEDS ORDERED: Albuterol HFA200 ACT/6.7 GM INH INH PRN (19:35)
[2025-02-06] MEDS ORDERED: Insulin Regular 100 UNIT/ML 10ML Vial SC SCH (21:00)
[2025-02-07] MEDS ORDERED: Ketorolac Tromethamine 15mg Vial IV SCH
[2025-02-07] MEDS ORDERED: CeFAZolin Sodium 2,000 MG in NS 100 ML IV SCH
--- NOTE | 2025-02-07 03:38 | NUR ---
NOC SUMMARY- PT ARRIVED TO ROOM IN NO DISTRESS. PT PAIN MANAGED WELL. PT IS WEARING IMMOBILIZER. PT VOIDING AND IS AMBULATING. NO TELE EVENTS REPORTED.
[2025-02-07 04:14] VITALS: BP 139/70
[2025-02-07 05:05] LABS: BASOPHILS ABSOLUTE AUTO 0.03 K/mm3 (0.00-0.23); BASOPHILS PERCENT AUTO 0 % (0-2); EOSINOPHILS ABSOLUTE AUTO 0.00 K/mm3 (0.00-0.68); EOSINOPHILS PERCENT AUTO 0 % (0-6); Hematocrit 36.5 % (37.0-53.0); Hemoglobin 11.5 g/dL (13.5-17.5); IMMATURE GRAN ABSOLUTE AUTO 0.08 K/mm3 (0.00-0.10); IMMATURE GRAN PERCENT AUTO 1 % (0-1); LYMPHOCYTES ABSOLUTE AUTO 0.71 K/mm3 (0.84-5.20); LYMPHOCYTES PERCENT AUTO 6 % (21-46); MONOCYTES ABSOLUTE AUTO 0.89 K/mm3 (0.16-1.47); MONOCYTES PERCENT AUTO 8 % (4-13); Mean Corpuscular HGB Conc 31.5 g/dL (31.5-36.5); Mean Corpuscular Volume 93 fL (80-100); NEUTROPHILS ABSOLUTE AUTO 9.59 K/mm3 (1.96-9.15); NEUTROPHILS PERCENT AUTO 85 % (41-73); NRBC ABSOLUTE 0.00 K/mm3 (0.00-0.02); NRBC Auto 0.0 /100 WBC (0.0-0.2); Platelet Count 154 K/mm3 (150-400); RDW Coefficient Variation 14.5 % (11.7-14.2); RDW Standard Deviation 49.1 fL (35.1-46.3)
[2025-02-07 06:03] LABS: Anion Gap 8.0 mmol/L (3-11); Blood Urea Nitrogen 24.0 mg/dL (8-24); CO2, Blood 28.0 mmol/L (21-32); Calcium, Blood 8.3 mg/dL (8.5-10.1); Chloride, Blood 104.0 mmol/L (98-108); Creatinine, Blood 1.52 mg/dL (0.60-1.20); Glucose, Blood 182.0 mg/dL (70-99); Magnesium, Blood 2.0 mg/dL (1.6-2.4); Potassium, Blood 5.0 mmol/L (3.5-5.5); Sodium, Blood 135.0 mmol/L (136-145)
[2025-02-07 06:59] VITALS: BP 129/70
[2025-02-07] MEDS ORDERED: ACET500 PO (07:04)
[2025-02-07] MEDS ORDERED: DOCU100 PO (07:04)
[2025-02-07] MEDS ORDERED: OXYC5 PO (07:04)
[2025-02-07] MEDS ORDERED: MetFORMIN HCl 500 mg PO SCH (08:00)
--- NOTE | 2025-02-07 09:28 | NUR ---
DR POWELL OFFICE CALLED & UPDATED ON RECOMMENDATIONS FOR HOME HEALTH. CARE MANAGEMENT NOTIFIED OF NEED FOR HEMIWALKER.
--- NOTE | 2025-02-07 10:45 | NUR ---
DISCHARGE PT HAS WORKED w/ THERAPY x 2. PAIN WELL CONTROLLED. EATING, DRINKING, & VOIDING WELL. HEMIWALKER GIVEN BY CARE MANAGEMENT. ESCORTED OUT VIA W/C.
== END 2025-02-07 10:25 | disposition home or self-care (01) | DRG 483 ==
LOC: ORSCMMR 12:00 → ORD 13:30 → ORSCMMR 14:00 → SURS 18:45 → ORSCMMR 18:46 → SURS 02-07 10:25
PROVIDERS: Orthopaedic Surgery; ADMIT Orthopaedic Surgery
PROC: 0LS40ZZ Reposition Left Upper Arm Tendon, Open Approach (ICD-10-PCS; 2025-02-06)
PROC: 0RRK0JZ Replacement of Left Shoulder Joint with Synthetic Substitute, Open Approach (ICD-10-PCS; principal; 2025-02-06 14:30)
DX: M19.012 Primary osteoarthritis, left shoulder (principal); I48.91 Unspecified atrial fibrillation; I25.10 Atherosclerotic heart disease of native coronary artery without angina pectoris; E78.00 Pure hypercholesterolemia, unspecified; I10 Essential (primary) hypertension; G47.33 Obstructive sleep apnea (adult) (pediatric); E11.9 Type 2 diabetes mellitus without complications; Z95.1 Presence of aortocoronary bypass graft; I25.2 Old myocardial infarction; Z95.2 Presence of prosthetic heart valve; Z95.0 Presence of cardiac pacemaker; Z95.5 Presence of coronary angioplasty implant and graft; Z90.49 Acquired absence of other specified parts of digestive tract; Z87.891 Personal history of nicotine dependence; Z79.899 Other long term (current) drug therapy; Z79.01 Long term (current) use of anticoagulants; Z79.84 Long term (current) use of oral hypoglycemic drugs; Z91.030 Bee allergy status; Z88.8 Allergy status to other drugs, medicaments and biological substances
CPT/HCPCS: 36415; 73030; 80048; 82947; 83735; 85025; 97110; 97116; 97162; 97165; 97535; A9270; J0166; J0690; J0735; J1100; J1885; J2250; J2405; J2795; J3010; J7120